=== PATIENT | female | born 2000 | race Two or more races ===

== ENCOUNTER 2025-02-18 05:47 | Outpatient (CLI) | payer OTHER ==
[2025-02-18 04:49] VITALS: BP 122/79; O2SAT 100
[2025-02-18] MEDS ORDERED: PRENATAL + DHA1 EAC1 PO (05:55)
[2025-02-18] MEDS ORDERED: TERBUTALINE SULFATE 1 MG/ML AMPUL ONE (05:55)
[2025-02-18] MEDS ORDERED: CEFAZOLIN SODIUM 1,000 MG VIAL ONE (05:56)
[2025-02-18] MEDS ORDERED: RINGERS SOLUTION,LACTATED 1,000 ML IV SCH (06:00)
[2025-02-18] MEDS ORDERED: CEFAZOLIN SODIUM 1,000 MG VIAL IV ONE (06:00)
[2025-02-18] MEDS ORDERED: TERBUTALINE SULFATE 1 MG/ML AMPUL SUBCUTANEO ONE (06:00)
[2025-02-18 07:15] VITALS: BP 118/75
[2025-02-18 07:59] LABS: PH,URINE 6.5 (5.0-8.0); URINE APPEARANCE Clear; URINE BILIRRUBIN Negative (NEGATIVE); URINE BLOOD Negative; URINE COLOR Yellow; URINE GLUCOSE Negative (NEGATIVE); URINE KETONE Negative (NEGATIVE); URINE LEUKOCYTE Negative; URINE NITRATE Negative; URINE PROTEIN Negative (NEGATIVE); URINE UROBILINOGEN 0.2 E.U./dl
[2025-02-18 08:01] LABS: URINE BACTERIA 162.7 uL (0.0-1933); URINE EPITHELIAL CELLS 13.7 uL (0.0-38.8); URINE RBC 3.9 uL (0.0-20.8); URINE WBC 7.7 uL (0.0-23.2)
[2025-02-18 08:14] LABS: URINE CAST 0.29 uL (0.0-1.40)
[2025-02-18 08:15] LABS: HEMATOCRIT 35.9 % (36.0-45.00); HEMOGLOBIN 12.4 g/dL (12.0-15.00); MEAN CELL VOLUME 89.2 fL (80.00-100.00); MEAN CORPUSCULAR HEMOGLOBIN 30.8 pg (27.00-32.0); MEAN CORPUSCULAR HGB CONC 34.6 g/dl (32.0-36.0); PLATELET COUNT 208 K/uL (150-450); RED BLOOD COUNT 4.03 M/uL (4.00-6.00); RED CELL DISTRIBUTION WIDTH 13.3 % (11.5-14.5)
[2025-02-18] MEDS ORDERED: CEFUROXIME500 MG PO (08:24)
[2025-02-18 08:38] VITALS: BP 118/75
[2025-02-18] MEDS ORDERED: CEFAZOLIN SODIUM 1,000 MG VIAL IV SCH (12:00)
== END 2025-02-18 08:39 | disposition home or self-care (01) ==
LOC: OBS/DEL 05:47
PROVIDERS: ATTEND Specialist
DX: O23.43 Unspecified infection of urinary tract in pregnancy, third trimester (principal); N39.0 Urinary tract infection, site not specified; R10.2 Pelvic and perineal pain; Z3A.34 34 weeks gestation of pregnancy

== ENCOUNTER 2025-02-20 05:27 | Inpatient (IN) | payer OTHER ==
[~2025-02-20] VITALS: Ht 157.5 cm; Wt 1.8 kg
[2025-02-20 05:24] VITALS: BP 128/84
[~2025-02-20 05:27] MED LIST: AMPICILLIN SODIUM 2,000 MG VIAL ONE; CEFUROXIME500 MG PO; PRENATAL + DHA1 EAC1 PO
[2025-02-20] MEDS ORDERED: RINGERS SOLUTION,LACTATED 1,000 ML IV SCH (05:30)
[2025-02-20] MEDS ORDERED: CEFAZOLIN SODIUM 1,000 MG VIAL ONE (05:32)
[2025-02-20] MEDS ORDERED: CHLORHEXIDINE GLUCONATE 120 ML BOTTLE TOP ONE ×2 (05:44→08:15)
[2025-02-20] MEDS ORDERED: ERYTHROMYCIN BASE OPHT 1GM EACH TUBE OP ONE ×2 (05:44→08:15)
[2025-02-20] MEDS ORDERED: LIDOCAINE HCL 1% 10ML VIAL ONE (05:44)
[2025-02-20] MEDS ORDERED: OXYTOCIN 20 UNITS/1000ML RL PIGGYBAG IV ONE (05:44)
[2025-02-20 06:17] LABS: HEMATOCRIT 36.6 % (36.0-45.00); HEMOGLOBIN 12.7 g/dL (12.0-15.00); MEAN CELL VOLUME 87.6 fL (80.00-100.00); MEAN CORPUSCULAR HEMOGLOBIN 30.4 pg (27.00-32.0); MEAN CORPUSCULAR HGB CONC 34.7 g/dl (32.0-36.0); PLATELET COUNT 225 K/uL (150-450); RED BLOOD COUNT 4.18 M/uL (4.00-6.00); RED CELL DISTRIBUTION WIDTH 13.6 % (11.5-14.5)
[2025-02-20 06:37] LABS: INR < 0.93; PARTIAL THROMBOPLASTIN TIME 24.9 SECONDS (22.0-34.0); PROTHROMBIN TIME 9.9 SECONDS (9.0-11.5)
[2025-02-20] MEDS ORDERED: CEFAZOLIN SODIUM 1,000 MG VIAL IV ONE (06:45)
[2025-02-20 06:57] LABS: URINE APPEARANCE Clear; URINE BILIRRUBIN Negative (NEGATIVE); URINE BLOOD Negative; URINE COLOR Yellow; URINE GLUCOSE Negative (NEGATIVE); URINE LEUKOCYTE Negative; URINE NITRATE Negative; URINE PROTEIN Trace (NEGATIVE); URINE UROBILINOGEN 0.2 E.U./dl
[2025-02-20 06:58] LABS: ALBUMIN 3.1 gm/dL (3.4-5.0); BILIRUBIN TOTAL 0.56 mg/dL (0.3-1.2); CALCIUM 9.5 mg/dL (8.5-10.1); CREATININE SERUM 0.58 mg/dL (0.55-1.02); GFR 128.83; GLOBULINA 4.2 G/DL (2.4-3.5); POTASSIUM 4.29 mEq/L (3.5-5.1); TOTAL PROTEIN 7.3 gm/dL (6.4-8.2); URINE BACTERIA 15.9 uL (0.0-1933); URINE EPITHELIAL CELLS 10.9 uL (0.0-38.8); URINE RBC 5.1 uL (0.0-20.8); URINE WBC 8.2 uL (0.0-23.2)
[2025-02-20] MEDS ORDERED: OXYTOCIN 20 UNITS/500ML RL PIGGYBAG IV ONE (07:09)
[2025-02-20 07:18] LABS: URINE KETONE 40 (NEGATIVE)
[2025-02-20 07:30] VITALS: BP 137/84
[2025-02-20] MEDS ORDERED: ACETAMINOPHEN 500 MG GEL..CAP PO PRN (08:00)
[2025-02-20] MEDS ORDERED: IBUprofen 800 MG TABLET PO PRN (08:00)
[2025-02-20] MEDS ORDERED: OXYTOCIN 1,000 ML IV SCH (08:15)
[2025-02-20] MEDS ORDERED: BENZOCAINE/MENTHOL 90 ML BOTTLE TOP PRN (08:15)
[2025-02-20] MEDS ORDERED: HYDROCORTISONE 2.5% 30 GM TUBE RECTAL SCH (09:00)
[2025-02-20 09:31] VITALS: BP 132/79
[2025-02-20 16:00] VITALS: BP 134/85
[2025-02-21] VITALS: BP 113/75
[2025-02-21 01:55] LABS: HEMATOCRIT 32.3 % (36.0-45.00); MEAN CELL VOLUME 89.6 fL (80.00-100.00); MEAN CORPUSCULAR HEMOGLOBIN 30.6 pg (27.00-32.0); MEAN CORPUSCULAR HGB CONC 34.2 g/dl (32.0-36.0); PLATELET COUNT 186 K/uL (150-450); RED BLOOD COUNT 3.61 M/uL (4.00-6.00); RED CELL DISTRIBUTION WIDTH 13.5 % (11.5-14.5)
[2025-02-21 09:03] VITALS: BP 131/87
[2025-02-22 00:20] VITALS: BP 130/80
[2025-02-22 08:24] VITALS: BP 114/79
== END 2025-02-22 09:12 | disposition home or self-care (01) | DRG 806 ==
LOC: LDR 05:27 → OB/GYN 05:27
PROVIDERS: ADMIT Specialist; ATTEND Specialist
PROC: 10E0XZZ Delivery of Products of Conception, External Approach (ICD-10-PCS; principal; 2025-02-20)
PROC: 0UQG7ZZ Repair Vagina, Via Natural or Artificial Opening (ICD-10-PCS; 2025-02-20)
PROC: 0UQMXZZ Repair Vulva, External Approach (ICD-10-PCS; 2025-02-20)
PROC: 4A1HXCZ Monitoring of Products of Conception, Cardiac Rate, External Approach (ICD-10-PCS; 2025-02-20)
DX: O60.14X0 Preterm labor third trimester with preterm delivery third trimester, not applicable or unspecified (principal); O71.4 Obstetric high vaginal laceration alone; Z37.0 Single live birth; O71.82 Other specified trauma to perineum and vulva; Z3A.34 34 weeks gestation of pregnancy